=== PATIENT | female | born 2005 | race Caucasian/White ===

== ENCOUNTER 2024-05-06 20:06 | Emergency (ER) | payer BC, SELFPAY ==
[2024-05-06 20:08] VITALS: BP 143/89; PULSE 66; RESP 16; TEMP 36.2; O2SAT 100; BMI 24.0
[2024-05-06 20:31] LABS: Bacteria 0 SEEN /hpf (None Seen); Mucous, Urine 0 SEEN /hpf (<or=2+); Red Blood Cells-Urine 0 SEEN /hpf (0-5); Squamous Epithelial Cells - UA 0 SEEN /hpf (5-10)
[2024-05-06 20:33] LABS: Color, Urine Yellow (Yellow); Glucose, Dipstick Normal (Normal); Ketone-Dipstick Negative (Negative); Leukocyte Esterase-Dipstick 100 /ul (Negative); Nitrite-Dipstick Negative (Negative); Occult Blood-Urine 10 /ul (Negative); Protein-Dipstick 30 mg/dl (Negative); Specific Gravity, Urine 1.015 (1.002-1.030); Urine Bilirubin Dipstick Negative (Negative); Urine Clarity Sl. Cloudy (Clear); Urine Urobilinogen 4 mg/dl (Normal)
[2024-05-06 20:37] LABS: Internal QC Validated? YES +Cl - CLEAR BKGD; Pregnancy, Urine Negative Negative
[2024-05-06 20:40] LABS: Amorphous Sediment 3+; White Blood Cells 0-5 SEEN /hpf (0-5)
--- NOTE | 2024-05-06 21:14 | CT_ITS ---
STUDY: CT Abdomen And Pelvis W/O Contrast Injection 05/06/2024 9:40 PM REASON FOR EXAM: Female, 18 years old. ABDOMINAL PAIN pelvic pain TECHNIQUE: Transaxial images were obtained without oral contrast, and without intravenous contrast. Individualized dose optimization techniques were used for this CT. COMPARISON: None FINDINGS: The visualized lung bases are unremarkable. The visualized portions of the heart are within normal limits. Unremarkable liver. Unremarkable gallbladder and extrahepatic biliary system. Unremarkable spleen. Unremarkable pancreas. Unremarkable bilateral adrenal glands. No acute findings of the right kidney. No acute findings of the left kidney. Unremarkable visualized stomach. Unremarkable small intestine. Unremarkable colon. The appendix is visualized and appears unremarkable. There are no acute findings of the abdominal aorta. Unremarkable inferior vena cava. Subcentimeter mesenteric lymph nodes. Unremarkable urinary bladder. IUD visualized. Unremarkable abdominal wall. Unremarkable osseous structures. CT/Abdomen/Pelvis without Cont IMPRESSION: (NOT LISTED IN ORDER OF SIGNIFICANCE) There are no acute findings. Other findings as above. Electronically Signed: Gilberto Wynne MD at 21:43 EDT ,
--- NOTE | 2024-05-06 21:14 | EX.ED.DYSGE1 ---
HPI History of Present Illness Chief Complaint: Abd Pain Informant: patient and friend Narrative Narrative: Presenting here with friend increasing lower pelvic pain with menstrual periods will last 2 days. She states menstrual period usually last 5 days and is heavy. She reports she was 10 days late bleeding only slightly pain is worse than typical. She states she is use Motrin Tylenol and naproxen over last couple days. She states usually this helps. No history of ovarian cyst. She has a copper IUD placed reportedly 4 years ago. She is here for school. She states she is not sexually active. States no chance of . No urinary symptoms. No fevers chills or sweats. No nausea or vomiting. Denies any abdominal surgeries. Prior similar symptoms: Yes PFSH PFSH Medical History no medical history Home Medications ?Medication ?Instructions ?Recorded ?Last Taken ?Type copper iud 05/06/24 Unknown History ibuprofen 600 mg tablet 600 mg PO Q6H PRN PRN pain #20 05/06/24 Unknown Rx TABLETS ondansetron 4 mg disintegrating 4 mg PO Q8H PRN PRN Nausea #10 tabs 05/06/24 Unknown Rx tablet Allergy/AdvReac Type Severity Reaction Status Date / Time No Known Allergies Allergy Verified 05/06/24 20:09 Family History no significant family his Surgical History no surgical history Social History Smoking Status: Never smoker ROS ROS ED Constitutional Constitutional ED: Denies chills, fever(s) or sweats Eyes Eyes: Denies change in vision ENT ENT ED: Denies dysphagia or sore throat Cardiovascular Cardiovascular: Denies chest pain, leg edema, palpitations or racing heartbeat Respiratory/Chest Respiratory/Chest: Denies cough, dyspnea or dyspnea on exertion Gastrointestinal Gastrointestinal: Denies abdominal pain, diarrhea, nausea or vomiting Genitourinary Genitourinary ED: Reports other Details: Pelvic pain, vaginal bleeding ; Denies dysuria, hematuria or urinary frequency Musculoskeletal Musculoskeletal: Denies back pain, extremity pain or neck pain Integumentary Denies rash or wounds Neurologic Neurologic: Denies headache(s), paresthesias or weakness EXAM Physical Exam Const Vital Signs: 05/06/24 20:08 05/06/24 22:07 05/06/24 22:38 Temperature 97.2 F L 98.1 F Temperature Source Temporal Pulse Rate 66 88 88 Respiratory Rate 16 16 16 Blood Pressure 143/89 H 122/74 H Blood Pressure Mean 107 90 Pulse Ox 100 98 98 Oxygen Delivery Method Room Air Room Air Positive well nourished and well developed Constitutional Narrative: Nontoxic General Appearance ED: well developed and NAD HEENT Reports moist mucous membranes normocephalic and atraumatic Eyes EOMs intact bilaterally and conjunctivae normal General Eye ED: Yes normal appearance of both eyes Neck no lymphadenopathy and supple General: Negative for tenderness Chest Wall Chest: Negative for tenderness Resp normal respiratory effort and normal air movement Effort and Inspection: symmetric chest movement; Negative for respiratory distress Cardio regular rate, regular rhythm and no murmurs Peripheral Pulses: pulses 2+ throughout GI normal to inspection, nondistended, normoactive bowel sounds and non-tender GI Narrative: No guarding or rebound. Palpation: Negative for guarding or rebound tenderness present Narrative: Patient requested female doctor for exam, fortunately my partner Dr. Abel was available to perform the exam. No external lesions, minimal blood in the vault, no adnexal tenderness, cervix was posterior earlier, was unable to visualize the string. Back/Spine no CVA tenderness and no thoracic nor lumbar tenderness Extremity normal to inspection General Extremety ED: Negative for edema or tenderness General Extremity: Negative for edema Neuro oriented x3 and no sensory deficits noted Sensorium / Orientation: awake and alert Skin no rashes or lesions noted and no wounds MDM MDM MDM Narrative Medical decision making narrative: Interventions / MDM: Differential diagnosis: Pelvic pain, menorrhagia Diagnosis considered but do not suspect: No clinical ovarian torsion, ectopic have hCG negative. My EKG interpretation: N/A Imaging independently reviewed and interpreted by myself: CT abdomen pelvis: Normal appendix, IUD in place. Also read by radiology. External documents reviewed: N/A Test considered but not ordered:N/A ED course: Patient was urine sent for evaluation is nontoxic. Requesting pelvic exam from female doctor for which my partner was able to evaluate. No adnexal tenderness. hCG negative urine negative. There is no visualization of the strain, she was concerned for displacement of the IUD. With her pain discussed CT with radiation risks versus benefits. She agrees to move forward. CT negative IUD in place. Patient reassured. Prescription Motrin and Zofran sent to her pharmacy. Outpatient follow-up with gynecology given. All questions were answered. Re-evaluation: stable Disposition discussed with patient/family/significant other: Patient and friend Case discussed with consulting clinician: N/A This note was generated with [employer] dictation software. It may contain incorrect words, spelling, and punctuation that were not noted in checking the note before signing. Lab Data Attestation: I reviewed the patient's lab results. Labs: Laboratory Results - last 24 hr 05/06/24 20:26 Urine Color Yellow Urine Clarity Sl. Cloudy Urine pH 7.0 Ur Specific [place] 1.015 Urine Protein 30 H Urine Glucose (UA) Normal Urine Ketones Negative Urine Occult Blood 10 H Urine Nitrite Negative Urine Bilirubin Negative Urine Urobilinogen 4 H Ur Leukocyte Esterase 100 H Urine RBC 0 SEEN Urine WBC 0-5 SEEN Ur Squamous Epith Cells 0 SEEN Amorphous Sediment 3+ Urine Bacteria 0 SEEN Urine Mucus 0 SEEN Urine Test Negative Radiography Diagnostic Testing: Clinical Impression(s) from Imaging Studies Abdomen/Pelvis CT 05/06/24 21:14 IMPRESSION: (NOT LISTED IN ORDER OF SIGNIFICANCE) There are no acute findings. Other findings as above. Electronically Signed: Gilberto Wynne MD at 21:43 EDT Reading Location ID and State: [facility] / ID , Service support , Discharge Plan Triage Chief Complaint: Abd Pain ED Provider: Murray Urban Dx/Rx/DC Orders Clinical Impression: Pelvic pain, Menorrhagia Instructions: ED Pelvic Pain, Unknown Cause Prescriptions: New ibuprofen 600 mg tablet 600 mg PO Q6H PRN PRN (Reason: pain) Qty: 20 0RF ondansetron 4 mg tablet,disintegrating 4 mg PO Q8H PRN PRN (Reason: Nausea) Qty: 10 0RF No Action copper iud Stand Alone Forms: ED Work / School Excuse Primary Care Provider: Care Physician,No Primary Referrals: Claudette Fernandez MD [Med Staff - Active Staff] - 1-2 Weeks Care Physician,No Primary [Primary Care Provider] - Activity Restrictions/Additional Instructions: negative. CT abdomen pelvis normal appendix, IUD in place. Continue Motrin for pain. Follow-up with gynecology. Print Language: Sami Disposition Disposition: Home, Self Care Discharge Date/Time: 05/06/24 22:59
[2024-05-06 22:07] VITALS: PULSE 88; RESP 16; O2SAT 98
[2024-05-06] MEDS: Ondansetron ODT 4 MG Tablet PO (22:14)
[2024-05-06] MEDS: Acetaminophen 500 MG Tablet 1000 MG PO (22:14)
[2024-05-06 22:38] VITALS: BP 122/74; PULSE 88; RESP 16; TEMP 36.7; O2SAT 98
== END 2024-05-06 22:59 | disposition home or self-care (01) ==
PROVIDERS: Emergency Provider Emergency Medicine; Visit Provider Emergency Medicine
DX: R10.2 Pelvic and perineal pain (principal); N92.0 Excessive and frequent menstruation with regular cycle; Z97.5 Presence of (intrauterine) contraceptive device
CPT/HCPCS: 74176; 81001; 81025; 99282